=== PATIENT | female | born 1945 | race Caucasian/White ===

== ENCOUNTER 2017-03-28 09:40 | Emergency (ER) | payer OTHER ==
[2017-03-28] MEDS ORDERED: NS 1,000 ML IV ONE (10:19)
--- NOTE | 2017-03-28 10:19 | EDPHY ---
H & P Stated Complaint: Intermittent low abd pain since ;concern re: diverticulitis flare Source: Patient, Family Exam Limitations: No limitations - Personal History Current Tetanus Diphtheria and Acellular Pertussis (TDAP): Yes - Medical/Surgical History Hx Asthma: No Hx Chronic Respiratory Disease: No Hx Diabetes: No Hx Cardiac Disease: No Hx Renal Disease: No Hx Cirrhosis: No Hx Alcoholism: No Hx HIV/AIDS: No Hx Splenectomy or Spleen Trauma: No Other PMH: diverticulosis/diverticulitis/vertigo - Social History Smoking Status: Never smoked HPI/ROS: CHIEF COMPLAINT: Abdominal pain HISTORY OF PRESENT ILLNESS: Patient complains of 3 days history of abdominal pain that she attributes to diverticulitis. She says that she has had diverticulitis several times in the past. She has pain that started lower in the abdomen 3 days ago. This is consistent previous episodes of diverticulitis. It is mild to moderate at rest. Moderate to severe with ambulation palpation. Nausea but no vomiting. No diarrhea. No bloody stools or emesis. No fever chills. No back pain. She started taking Cipro on Tuesday and she has a previous prescription for this due to previous infections. No improvement to this time. No other associated complaints or modifying factors. She has not had any history of partial colectomy PREVIOUS ABDOMINAL SURGERIES/DIAGNOSES: Recurrent diverticulitis, diverticulosis NPO: Liquids only REVIEW OF SYSTEMS: Ten systems reviewed and are negative unless otherwise noted in the HPI EXAMINATION: General Appearance: Alert, no distress Head: normocephalic, atraumatic Eyes: Pupils equal and round, no conjunctival pallor or injection ENT, Mouth: Mucous membranes moist. Uvula midline. No erythema or edema. Neck: Normal inspection, supple, non-tender Respiratory: Lungs are clear to auscultation Cardiovascular: Regular rate and rhythm. No murmur. Pulses intact distally. Gastrointestinal: Abdomen is soft. Mild lower abdominal tenderness. No tympany. No rigidity. No distention. Nonacute abdomen. Back: non-tender, no bony abnormalities Neurological: A&O, nonfocal, normal gait Skin: Warm and dry, no rash Extremities: Nontender, no pedal edema Psychiatric: Mood and affect normal DIFFERENTIAL DIAGNOSES: Including but not limited to diverticulitis, diverticulosis, colitis, enteritis , acute abdomen, perforated diverticulitis, peritoneal abscess MDM: 10:20 a.m. Abdominal pain with examination history suggesting diverticulitis. CT scan has been ordered to rule out perforation or complex diverticulitis. She is resting comfortably in no acute distress. 10:50 a.m. Laboratory studies reveal a very mild leukocytosis at 9.58. Chemistries unremarkable. Lipase and liver enzymes are normal. CT scan is pending. 11:20 a.m. Notified by radiologist Dr. Mckeon. CT scan of the abdomen and pelvis reveals sigmoid diverticulitis, 10 cm. Some fluid noted. No perforation or abscess. I have re-evaluated the patient. She remains comfortable. We discussed admission for treatment versus discharge home. She is discussing with her spouse. I will start the additional Flagyl as she has been taking Cipro at home. 12:00 p.m. I have re-evaluated the patient. She remains comfortable. She wants to be discharged home. We will discharge her home with Cipro and Flagyl as well as pain medication. She is to contact her physicians in the morning, both Dr. Mcmahan and Dr. Glaser. She is comfortable with this plan. I did offer admission and she has declined. We discussed risks, benefits and alternatives. She is capable of making this decision and is comfortable with assuming the risks of being discharged home. I do feel she is stable for discharge home and I do feel she will do well outpatient. ED Precautions: Worsening pain. Fever. Bloody stools. Bloody emesis. Constipation or diarrhea. SUPERVISION: Case discussed with Dr. Floyd ([facility]) Constitutional: Initial Vital Signs Temperature (C) 36.8 C 03/28/17 09:45 Heart Rate 103 H 03/28/17 09:45 Respiratory Rate 18 03/28/17 09:45 Blood Pressure 158/93 H 03/28/17 09:45 O2 Sat (%) 98 03/28/17 09:45 O2 Delivery Mode Room Air Allergies/Adverse Reactions: No Known Allergies Allergy (Verified 03/28/17 09:55) Home Medications: Medication Instructions Recorded Atorvastatin Unk Str 1 tab PO HS 03/18/15 Olmesartan Medoxomil [Benicar] 20 mg PO DAILY 03/18/15 Pulmicort Inh 1 puffs IH HS 03/18/15 amLODIPine BESYLATE [Norvasc] 2.5 mg PO DAILY 03/18/15 Acyclovir [Zovirax 400 mg (*)] 400 mg PO PRN 03/28/17 Ciprofloxacin [Cipro] 500 mg PO BID 03/28/17 Ciprofloxacin [Cipro] 500 mg PO BID #28 tab 03/28/17 metroNIDAZOLE [Flagyl 500 mg (*)] 500 mg PO TID #30 tab 03/28/17 oxyCODONE HCL/ACETAMINOPHEN 1 each PO Q4-6PRN PRN #20 tablet 03/28/17 [Percocet 5-325 mg Tablet] Medical Decision Making - Diagnostics Imaging Results: Imaging Impressions Abdomen CT 03/28/17 10:18 Impression: 1. Sigmoid diverticulitis with regional stranding and small volume of free fluid. 2. No evidence of perforation or abscess. Findings discussed with Emergency Department physician, Bryson Knott PA-C on March 28, 2017 at 1120 hours. ED Course/Re-evaluation: I did not see this patient while she was in the emergency department. However her care was discussed with the PA while the patient was in the department. I agree with treatment plan and management (Silvestre Floyd) - Data Points Laboratory Results: Laboratory Results 03/28/17 10:10 03/28/17 10:10 03/28/17 03/28/17 03/28/17 11:20 10:10 10:10 WBC RBC Hgb Hct MCV MCH MCHC RDW Plt Count MPV Neut % (Auto) Lymph % (Auto) [place] % (Auto) Eos % (Auto) Baso % (Auto) Nucleat RBC Rel Count Absolute Neuts (auto) Absolute Lymphs (auto) Absolute Monos (auto) Absolute Eos (auto) Absolute Basos (auto) Absolute Nucleated RBC Immature Gran % Immature Gran # PT 14.6 SEC SEC (12.0-15.0) INR 1.15 (0.83-1.16) APTT 29.5 SEC SEC (23.0-38.0) Sodium 140 mEq/L mEq/L (134-144) Potassium 3.6 mEq/L mEq/L (3.5-5.2) Chloride 102 mEq/L mEq/L (97-110) Carbon Dioxide 24 mEq/l mEq/l (22-31) Anion Gap 14 mEq/L mEq/L (8-16) BUN 8 mg/dL mg/dL (7-23) Creatinine 0.7 mg/dL mg/dL (0.6-1.0) Estimated GFR > 60 Glucose 130 mg/dL H mg/dL (70-100) Calcium 9.8 mg/dL mg/dL (8.5-10.4) Total Bilirubin 1.2 mg/dL mg/dL (0.1-1.4) Conjugated Bilirubin 0.5 mg/dL mg/dL (0.0-0.5) Unconjugated Bilirubin 0.7 mg/dL mg/dL (0.0-1.1) AST 44 IU/L IU/L (14-46) ALT 47 IU/L IU/L (9-52) Alkaline Phosphatase 93 IU/L IU/L (38-126) Total Protein 8.0 g/dL g/dL (6.3-8.2) Albumin 4.7 g/dL g/dL (3.5-5.0) Lipase 125.0 IU/L IU/L (23-300) Urine Color PALE YELLOW Urine Appearance CLEAR Urine pH 6.0 (5.0-7.5) Ur Specific [place] 1.025 (1.002-1.030) Urine Protein NEGATIVE (NEGATIVE) Urine Ketones NEGATIVE (NEGATIVE) Urine Blood NEGATIVE (NEGATIVE) Urine Nitrate NEGATIVE (NEGATIVE) Urine Bilirubin NEGATIVE (NEGATIVE) Urine Urobilinogen NEGATIVE EU EU (0.2-1.0) Ur Leukocyte Esterase NEGATIVE (NEGATIVE) Urine RBC 1-3 /hpf /hpf (0-3) Urine WBC 1-3 /hpf /hpf (0-3) Ur Epithelial Cells TRACE /lpf /lpf (NONE-1+) Urine Glucose NEGATIVE (NEGATIVE) 03/28/17 10:10 WBC 9.78 10^3/uL H 10^3/uL (3.80-9.50) RBC 5.09 10^6/uL 10^6/uL (4.18-5.33) Hgb 15.4 g/dL g/dL (12.6-16.3) Hct 44.0 % % (38.0-47.0) MCV 86.4 fL fL (81.5-99.8) MCH 30.3 pg pg (27.9-34.1) MCHC 35.0 g/dL g/dL (32.4-36.7) RDW 11.9 % % (11.5-15.2) Plt Count 298 10^3/uL 10^3/uL (150-400) MPV 9.7 fL fL (8.7-11.7) Neut % (Auto) 80.5 % H % (39.3-74.2) Lymph % (Auto) 9.2 % L % (15.0-45.0) [place] % (Auto) 9.3 % % (4.5-13.0) Eos % (Auto) 0.3 % L % (0.6-7.6) Baso % (Auto) 0.3 % % (0.3-1.7) Nucleat RBC Rel Count 0.0 % % (0.0-0.2) Absolute Neuts (auto) 7.87 10^3/uL H 10^3/uL (1.70-6.50) Absolute Lymphs (auto) 0.90 10^3/uL L 10^3/uL (1.00-3.00) Absolute Monos (auto) 0.91 10^3/uL H 10^3/uL (0.30-0.80) Absolute Eos (auto) 0.03 10^3/uL 10^3/uL (0.03-0.40) Absolute Basos (auto) 0.03 10^3/uL 10^3/uL (0.02-0.10) Absolute Nucleated RBC 0.00 10^3/uL 10^3/uL (0-0.01) Immature Gran % 0.4 % % (0.0-1.1) Immature Gran # 0.04 10^3/uL 10^3/uL (0.00-0.10) PT INR APTT Sodium Potassium Chloride Carbon Dioxide Anion Gap BUN Creatinine Estimated GFR Glucose Calcium Total Bilirubin Conjugated Bilirubin Unconjugated Bilirubin AST ALT Alkaline Phosphatase Total Protein Albumin Lipase Urine Color Urine Appearance Urine pH Ur Specific [place] Urine Protein Urine Ketones Urine Blood Urine Nitrate Urine Bilirubin Urine Urobilinogen Ur Leukocyte Esterase Urine RBC Urine WBC Ur Epithelial Cells Urine Glucose Medications Given: Discontinued Medications Sodium Chloride (Ns) 1,000 mls @ 0 mls/hr IV ONCE ONE PRN Reason: Wide Open Stop: 03/28/17 10:20 Last Admin: 03/28/17 10:23 Dose: 1,000 mls Metronidazole/Sodium Chloride (Flagyl 500 Mg (Premix)) 100 mls @ 100 mls/hr IV EDNOW ONE PRN Reason: Protocol Stop: 03/28/17 12:26 Last Admin: 03/28/17 12:00 Dose: 100 mls Ketorolac Tromethamine (Toradol) 15 mg IVP EDNOW ONE Stop: 03/28/17 10:27 Last Admin: 03/28/17 10:28 Dose: 15 mg Departure - Departure Disposition: Home, Routine, Self-Care Clinical Impression: Sigmoid diverticulitis Condition: Good Instructions: Diverticulitis (ED) Additional Instructions: Recommend liquid diet. Medications as discussed. Contact both physicians in the morning for definitive care. Return here for worsening pain, fever chills Referrals: Wilfredo Glaser MD [Primary Care Provider] - As per Instructions Mohsen Mcmahan MD [[facility] [place] Primary Care Provider] - As per Instructions Prescriptions: Ciprofloxacin [Cipro] 500 mg PO BID #28 tab metroNIDAZOLE [Flagyl 500 mg (*)] 500 mg PO TID #30 tab oxyCODONE HCL/ACETAMINOPHEN [Percocet 5-325 mg Tablet] 1 each PO Q4-6PRN PRN # 20 tablet PRN Reason: Pain, Breakthrough
[2017-03-28 10:25] LABS: % IMMATURE GRANULYOCYTES 0.4 % (0.0-1.1); ABSOLUTE IMMATURE GRANULOCYTES 0.04 10^3/uL (0.00-0.10); ADD DIFF? NO; ADD MORPH? NO; ADD SCAN? NO; ATYPICAL LYMPHOCYTE FLAG 10 (0-99); FRAGMENT RBC FLAG 0 (0-99); HEMOGLOBIN 15.4 g/dL (12.6-16.3); LEFT SHIFT FLG 0 (0-99); LIPEMIA HEMOLYSIS FLAG 90 (0-99); MEAN CELL HEMOGLOBIN 30.3 pg (27.9-34.1); MEAN CELL VOLUME 86.4 fL (81.5-99.8); MEAN PLATELET VOLUME 9.7 fL (8.7-11.7); PLATELET CLUMPS FLAG 0 (0-99); PLATELET COUNT 298 10^3/uL (150-400); RED BLOOD CELL COUNT 5.09 10^6/uL (4.18-5.33); RED CELL DISTRIBUTION WIDTH 11.9 % (11.5-15.2)
[2017-03-28] MEDS ORDERED: KETOROLAC 30 MG/1 ML SDV IVP ONE (10:26)
[2017-03-28 10:31] LABS: INR 1.15 (0.83-1.16); PROTIME(PATIENT) 14.6 SEC (12.0-15.0)
[2017-03-28 10:32] LABS: APTT 29.5 SEC (23.0-38.0)
[2017-03-28 10:33] LABS: ALANINE AMINOTRANSFERASE 47 IU/L (9-52); ALBUMIN 4.7 g/dL (3.5-5.0); ALKALINE PHOSPHATASE 93 IU/L (38-126); ANION GAP 14 mEq/L (8-16); ASPARTATE AMINOTRANSFERASE 44 IU/L (14-46); BILIRUBIN,TOTAL 1.2 mg/dL (0.1-1.4); BILIRUBIN-CONJUGATED 0.5 mg/dL (0.0-0.5); BILIRUBIN-UNCONJUGATED 0.7 mg/dL (0.0-1.1); CALCIUM 9.8 mg/dL (8.5-10.4); CARBON DIOXIDE 24 mEq/l (22-31); CHLORIDE 102 mEq/L (97-110); CREATININE 0.7 mg/dL (0.6-1.0); GLOMERULAR FILTRATION RATE > 60; GLUCOSE 130 mg/dL (70-100); POTASSIUM 3.6 mEq/L (3.5-5.2); SODIUM 140 mEq/L (134-144)
[2017-03-28] MEDS ORDERED: IOPAMIDOL (ISOVUE-300) 100 ML BTL ONE (10:36)
[2017-03-28 11:30] LABS: COLOR PALE YELLOW; LEUKOCYTE ESTERASE,URINE NEGATIVE (NEGATIVE); NITRITE,URINE NEGATIVE (NEGATIVE)
[2017-03-28 13:22] VITALS: BP 154/91; PULSE 100; RESP 14; TEMP 97.7; O2SAT 97
== END 2017-03-28 13:34 | disposition home or self-care (01) ==
DX: K57.32 Diverticulitis of large intestine without perforation or abscess without bleeding (principal)
CPT/HCPCS: 74177; 96361; 96374; 96375; 99285; J1885; Q9967

== ENCOUNTER → 2017-08-02 | Outpatient (CLI) | payer OTHER | LOC: BMCIMAGING 08:34 | PROVIDERS: ATTEND Obstetrics & Gynecology | DX: Z12.31 Encounter for screening mammogram for malignant neoplasm of breast (principal) | CPT/HCPCS: G0202 ==

== ENCOUNTER → 2018-04-06 | Outpatient (CLI) | payer OTHER | LOC: BMCIMAGING 09:13 | PROVIDERS: ATTEND Orthopaedic Surgery | DX: M25.861 Other specified joint disorders, right knee (principal); M25.862 Other specified joint disorders, left knee ==

== ENCOUNTER → 2018-07-17 | Outpatient (CLI) | payer OTHER | LOC: BMCIMAGING 10:18 | PROVIDERS: ATTEND Internal Medicine | DX: Z13.820 Encounter for screening for osteoporosis (principal); M81.0 Age-related osteoporosis without current pathological fracture; Z78.0 Asymptomatic menopausal state ==

== ENCOUNTER → 2018-08-03 | Outpatient (CLI) | payer OTHER | LOC: BMCIMAGING 08:26 | PROVIDERS: ATTEND Obstetrics & Gynecology | DX: Z12.31 Encounter for screening mammogram for malignant neoplasm of breast (principal) ==